=== PATIENT | male | born 1995 | race Two or more races ===

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

== ENCOUNTER 2021-07-28 17:25 | Emergency (ER) | payer SELFPAY ==
[~2021-07-28] VITALS: Ht 165.1 cm; Wt 70.0 kg
[2021-07-28 20:51] LABS: BASO # 0.1 x10^3/uL (0.0-0.2); BASO % 1 % (0-3); EOS % 0 % (0-3); HEMATOCRIT 45.3 % (39.0-53.0); HEMOGLOBIN 15.6 g/dL (13.0-17.5); LYMPH # 2.1 x10^3/uL (1.0-4.8); LYMPH % 13 % (24-48); MEAN CORPUSCULAR HEMOGLOBIN 32 pg (25-35); MEAN CORPUSCULAR HGB CONC 35 g/dL (31-37); MEAN CORPUSCULAR VOLUME 93 fL (79-100); MONO # 0.9 x10^3/uL (0.0-1.1); MONO % 5 % (0-9); NEUT # 13.1 x10^3/uL (1.8-7.7); NEUT % 81 % (31-73); PLATELET COUNT 313 x10^3/uL (140-400); RED BLOOD COUNT 4.89 x10^6/uL (4.30-5.70); RED CELL DISTRIBUTION WIDTH 13.5 % (11.5-14.5); WHITE BLOOD COUNT 16.1 x10^3/uL (4.0-11.0)
[2021-07-28 21:04] LABS: CALCIUM 8.4 mg/dL (8.5-10.1); CREATININE 0.9 mg/dL (0.7-1.3); GFR 103.7; POTASSIUM 3.9 mmol/L (3.5-5.1)
[2021-07-28 21:09] LABS: ALBUMIN 4.2 g/dL (3.4-5.0); TOTAL BILIRUBIN 0.7 mg/dL (0.2-1.0); TOTAL PROTEIN 8.4 g/dL (6.4-8.2)
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
[2021-07-28 21:28] LABS: % BASOS 2 % (0-3); % LYMPHS 14 % (24-48); % MONOS 3 % (0-10); % SEGS 81 % (35-66); PLT ESTIMATE ADEQUATE (ADEQUATE)
[2021-07-28] MEDS ORDERED: CONTRAST GIVEN. MC PRN (21:30)
[2021-07-28] MEDS ORDERED: IOHEXOL 300 MG/ML 100ML VIAL. IV ONE (22:00)
[2021-07-28 22:02] LABS: BILIRUBIN,URINE NEGATIVE (NEG); CLARITY,URINE CLEAR; COLOR,URINE YELLOW; NITRITE,URINE NEGATIVE (NEG); PROTEIN,URINE NEGATIVE (NEG-TRACE); UROBILINOGEN,URINE 0.2 mg/dL (0.2 mg/dL)
[2021-07-28 22:07] LABS: BARBITURATES NEG (NEG); BENZODIAZEPINES NEG (NEG); CANNABINOIDS POS (NEG); COCAINE NEG (NEG); METHADONE NEG (NEG); OPIATES NEG (NEG); PHENCYCLIDINE NEG (NEG)
--- NOTE | 2021-07-28 22:12 | RAD ---
Exam: CT abdomen/pelvis with intravenous contrast Indication: Hematemesis, abdominal pain Comparison: None Technique: Helical CT imaging performed of the abdomen and pelvis after the intravenous administratio n of 75 mL Omnipaque 300 contrast. Sagittal and coronal reformats were obtained. One or more of the following individualized dose reduction techniques were utilized for this examinat ion: 1. Automated exposure control 2. Adjustment of the mA and/or kV according to patient size 3. Use of iterative reconstruction technique. Findings: Lower chest: The lung bases are clear. The heart is normal in size. Liver: Normal. Gallbladder/Biliary Tree: Normal. Pancreas: Normal. Spleen: Normal. Adrenal Glands: Normal Kidneys/Ureters/Bladder: Subcentimeter hypodensity in the right kidney, too small to characterize but likely a simple cyst. No hydronephrosis. Ureters and bladder are normal. Reproductive Organs: Prostate gland is normal Stomach, small bowel, and colon: The stomach is normal. There is no small bowel obstruction. Appendix is surgically absent. The colon is unremarkable. Vasculature: No aortic aneurysm. Lymph Nodes: No lymphadenopathy. Peritoneum and retroperitoneum: No free fluid or free air. Bones: No acute osseous abnormality. IMPRESSION: No acute abnormality in the abdomen and pelvis. Electronically signed by: Denice Alexis MD (07/28/2021 10:10 PM) [id number]
[2021-07-28 22:14] LABS: BACTERIA,URINE 0 /HPF (0-FEW)
[2021-07-28 22:20] LABS: AMPHETAMINE/METHAMPHETAMINE NEG (NEG)
[2021-07-28] MEDS ORDERED: FAMOTIDINE 20 MG/2 ML VIAL IVP ONE (23:00)
[2021-07-28] MEDS ORDERED: ONDANSETRON PF 4 MG/2 ML VIAL. IVP ONE (23:00)
[2021-07-28] MEDS ORDERED: IV NORMAL SALINE 1000ML BAG 1,000 ML IV ONE (23:00)
[2021-07-29] MEDS ORDERED: ONDA4TAB12 PO (00:03)
[2021-07-29] MEDS ORDERED: FAMO20TA5 PO (00:03)
[2021-07-29 00:11] VITALS: BP 136/71
== END 2021-07-29 00:18 | disposition home or self-care (01) ==
LOC: ER 17:25
DX: K92.0 Hematemesis (principal); R10.31 Right lower quadrant pain; F10.10 Alcohol abuse, uncomplicated; Y90.0 Blood alcohol level of less than 20 mg/100 ml
CPT/HCPCS: 36415; 74177; 80053; 80307; 81001; 83690; 85007; 85025; 96361; 96374; 96375; 99285; G0480; J2405; J3490; J7030; Q9967